=== PATIENT | female | born 1995 | race Caucasian/White ===

== ENCOUNTER 2017-10-01 21:04 | Emergency (ER) | payer MEDICAID ==
[~2017-10-01] VITALS: Ht 172.7 cm; Wt 66.8 kg
[~2017-10-01 21:04] MED LIST: METH4TAB3 PO
[2017-10-01 21:50] LABS: BASOPHILS % (AUTO) 0.1 % (0-1); EOSINOPHILS # (AUTO) 0.1 X10'3 (0-0.9); EOSINOPHILS % (AUTO) 0.7 % (0-6); HEMATOCRIT 43.9 % (35.0-45.0); HEMOGLOBIN 14.9 g/dl (12.0-16.0); LYMPHOCYTES # (AUTO) 1.2 X10'3 (1.1-4.8); LYMPHOCYTES % (AUTO) 7.8 % (21-51); MEAN CORPUSCULAR HEMOGLOBIN 29.8 PG (27.0-31.0); MEAN CORPUSCULAR HGB CONC 33.9 % (33.0-36.5); MEAN CORPUSCULAR VOLUME 87.9 FL (78-98); MEAN PLATELET VOLUME 7.2 FL (7.4-10.4); MONOCYTES # (AUTO) 0.3 X10'3 (0-0.9); MONOCYTES % (AUTO) 2.1 % (2-12); NEUTROPHILS % (AUTO) 89.3 % (42-75); PLATELET COUNT 317 X10'3 (140-440); RED BLOOD COUNT 4.99 X10'6 (4.20-5.60); RED CELL DISTRIBUTION WIDTH 12.3 % (11.5-14.5); WHITE BLOOD COUNT 15.7 X10'3 (4.5-11.0)
[2017-10-01 22:00] LABS: INR 1.1 INR; PROTHROMBIN TIME 10.9 SECONDS (9.0-12.0)
[2017-10-01 22:05] LABS: ALANINE AMINOTRANSFERASE 24 U/L (12-78); ALBUMIN 4.2 G/DL (3.4-5.0); ALBUMIN/GLOBULIN RATIO 1.1 (1.1-1.5); ALKALINE PHOSPHATASE 61 IU/L (46-116); ANION GAP 12 (8-16); ASPARTATE AMINO TRANSFERASE 17 U/L (10-37); BILIRUBIN,TOTAL 0.5 MG/DL (0.1-1.0); BLOOD UREA NITROGEN 6 MG/DL (7-18); CALCIUM 9.6 MG/DL (8.5-10.1); CHLORIDE 91 MMOL/L (99-107); GLUCOSE 105 MG/DL (70-104); POTASSIUM 4.2 MMOL/L (3.5-5.1); SODIUM 124 MMOL/L (135-145); TOTAL CARBON DIOXIDE 21.5 MMOL/L (24-32); TOTAL PROTEIN 7.9 G/DL (6.4-8.2); eGFR > 90 ML/MIN
[2017-10-01] MEDS ORDERED: diphenhydrAMINE 50 mg/ml inj IV ONE (22:05)
[2017-10-01] MEDS ORDERED: metoclopramide 5 mg/ml inj IV ONE (22:05)
[2017-10-01] MEDS ORDERED: ondansetron/PF 4mg/2ml inj IV ONE (22:05)
[2017-10-01] MEDS ORDERED: normal saline 1000ML IV soln IVB ONE ×2 (22:05→22:40)
[2017-10-01] MEDS ORDERED: ONDA8TAB6 PO (22:45)
[2017-10-01] MEDS ORDERED: LORazepam 2 mg/ml vial IV ONE (23:25)
[2017-10-01 23:56] VITALS: BP 117/71
== END 2017-10-01 23:57 | disposition home or self-care (01) ==
LOC: ER 21:05
DX: E87.1 Hypo-osmolality and hyponatremia (principal); E86.0 Dehydration; D72.829 Elevated white blood cell count, unspecified; E03.9 Hypothyroidism, unspecified; E11.9 Type 2 diabetes mellitus without complications; R11.2 Nausea with vomiting, unspecified; Z86.73 Personal history of transient ischemic attack (TIA), and cerebral infarction without residual deficits; Z79.899 Other long term (current) drug therapy
CPT/HCPCS: 36415; 80053; 85025; 85610; 96361; 96374; 96375; 99284; J1200; J2060; J2405; J2765; J7030

== ENCOUNTER 2018-06-08 16:47 | Emergency (ER) | payer MEDICAID ==
[~2018-06-08] VITALS: Ht 147.3 cm; Wt 61.0 kg
[~2018-06-08 16:47] MED LIST changes: +ONDA8TAB6 PO
[2018-06-08 16:51] VITALS: BP 115/69
[2018-06-08] MEDS ORDERED: benoxinate/fluorescein ophth drops 5ml bottle RIGHTEYE ONE (18:00)
[2018-06-08] MEDS ORDERED: fluorescein sod 1mg ophthalmic strip RIGHTEYE ONE (18:00)
[2018-06-08] MEDS ORDERED: proparacaine 0.5% ophthalmic drops 15ml EACHEYE ONE (18:50)
[2018-06-08] MEDS ORDERED: erythromycin ophthalmic ointment 1gm tube RIGHTEYE ONE (19:20)
[2018-06-08] MEDS ORDERED: HYDR-569 PO (19:34)
[2018-06-08] MEDS ORDERED: HYDROcodone/acetaminophen 5mg/325mg tablet PO ONE (19:35)
== END 2018-06-08 19:50 | disposition home or self-care (01) ==
LOC: ER 16:47
DX: S05.02XA Injury of conjunctiva and corneal abrasion without foreign body, left eye, initial encounter (principal); E11.9 Type 2 diabetes mellitus without complications; E03.9 Hypothyroidism, unspecified; Z86.73 Personal history of transient ischemic attack (TIA), and cerebral infarction without residual deficits; X58.XXXA Exposure to other specified factors, initial encounter; Y93.89 Activity, other specified; Y92.89 Other specified places as the place of occurrence of the external cause; Y99.9 Unspecified external cause status
CPT/HCPCS: 99283

== ENCOUNTER 2019-01-27 15:20 | Outpatient (CLI) | payer MEDICAID ==
[~2019-01-27 15:20] MED LIST changes: +HYDR-4383 PO
== END 2019-01-27 23:59 | disposition home or self-care (01) ==
LOC: LAB 15:20
PROVIDERS: ATTEND Obstetrics & Gynecology
DX: E23.0 Hypopituitarism (principal)
CPT/HCPCS: 36415; 82670; 82679; 83001; 83002; 84146